=== PATIENT | female | born 1955 ===

== ENCOUNTER 2021-03-22 09:12 | Outpatient (REF) | payer BC, SELFPAY ==
--- NOTE | 2021-03-22 15:59 | MHC.AU.ANR ---
Adult Audiological Evaluation Date of Visit: 03/22/21 Reason for Appointment: Audiological evaluation due to concern for decreased hearing. Ms. Patel reports that for ~10 years she's had difficulty hearing and understanding in the presence of background noise. She now notes that even one-on-one conversations can be difficulty to follow and she's asking for repetition frequently. Does patient feel they have a hearing loss?: Yes If Yes, Which Ear?: Both Ears When Was Hearing Difficulty First Noticed?: ~10 years ago, gradually worsening over time Has hearing been tested previously?: Yes Previous Hearing Test Results: Previously tested at [facility]. Results not available to be reviewed. Hearing Handicap Inventory: HHIE SCORE: 20 Based on HHIE score, patient has: Mild to moderate perceived hearing handicap Medical History: Medical History: High Blood Pressure Medication List: Amlodipine 10 mg, Omeprazole 20 mg, Vitamin B12 1000 mg Otoscopy: Right Ear: Unremarkable Left Ear: Unremarkable Tympanometry: Tympanometry performed due to: To assess integrity of the middle ear system Right Ear: Normal Middle Ear System (Type A) Left Ear: Normal Middle Ear System (Type A) Hearing Evaluation: Transducer(s) Used: Insert Earphones, Bone Conduction Method: Conventional Audiometry Stimuli Used: Pure Tones Right Ear: Description of Hearing: Normal hearing from 250-500 Hz, sloping to a mild to moderately severe sensorineural hearing loss from 5475-9421 Hz. Left Ear: Description of Hearing: Normal hearing from 250-500 Hz, sloping to a mild to moderately sensorineural hearing loss from 8808-8974 Hz. Speech Recognition Threshold (SRT): Method Used: Monitored Live Voice Stimuli Used: Spondee Words Right Ear: 25 dBHL Left Ear: 20 dBHL Word Discrimination: Method: Recorded Lists Word Lists Used: NU-6 Right Ear: 96% at 65 dBHL Left Ear: 96% at 65 dBHL QuickSIN: 1 dB SNR loss when presented binaurally at 65 dBHL, indicating normal speech in noise understanding abilities. Recommendations: Audiological re-evaluation in one year. Trial with amplification is recommended. Patient plans to contact [facility]. Advised to schedule a hearing aid consultation if she would like to pursue hearing aids through our clinic. Diagnosis: Primary Diagnosis: H90.3 Bilateral Sensorineural Hearing Loss Services Performed: Services Performed: Comprehensive Audiological Evaluation (CPT 23848) Tympanometry (CPT 16966) Unlisted Otorhinolaryngological Service or Procedure (CPT 67674) Signature: Provider: Nida Perez, CCC-A
== END 2021-03-22 09:13 | disposition home or self-care (01) ==
LOC: HO.SH 09:12
PROVIDERS: Visit Provider Internal Medicine
DX: H90.3 Sensorineural hearing loss, bilateral (principal)
CPT/HCPCS: 92557; 92567

== ENCOUNTER 2021-12-14 13:20 | Outpatient (REF) | payer SELFPAY ==
--- NOTE | 2021-12-14 15:37 | MHC.AU.HAS ---
Hearing Aid Evaluation Date of Visit: 12/14/21 Historical Information: Description of Hearing: Normal low-frequency hearing sloping to a mild to moderate/moderately-severe sensorineural hearing loss bilaterally. Current personal amplification information, if applicable: None Summary: Ms. Patel was seen today for an HAE. She was seen for an audiological evaluation last year and at that time applied for [facility] services but was not approved. She would like to proceed with purchasing a pair of hearing aids. Discussed hearing aid styles and technologies. She would like to try EDWIN style hearing aids coupled with domes and with standard batteries. Hearing Aid Prescription: Based on the individual?s shared listening needs, communication environments, dexterity, desire for connectivity, and personal preferences, the following prescription for amplification has been made: Right ear: Range Examiner: PhonO-film Model: Audeo P70-13T Battery Size: 13 Color: H0 Beige Hand Chain Maker: Size 1 M Type of Dome: Open dome Left ear: Left ear prescription to be same as Right Hearing Aid above: Range Examiner: Phonak Model: Audeo P70-13T Battery Size: 13 Color: H0- Beige Hand Chain Maker: 1 M Type of Dome: Open Plan of Care: Hearing Instrument Fitting to be scheduled when materials arrive. Hearing aids ordered. Paid $350 down payment. Plans to put half down at fitting and set up a payment plan for the remainder. Primary Diagnosis: H90.3 Bilateral Sensorineural Hearing Loss Signature: Provider: Nida Perez, CCC-A
== END 2021-12-14 13:21 | disposition home or self-care (01) ==
LOC: HO.HAP 13:20
PROVIDERS: Visit Provider Internal Medicine
DX: Z46.1 Encounter for fitting and adjustment of hearing aid (principal); H90.3 Sensorineural hearing loss, bilateral
CPT/HCPCS: 92591

== ENCOUNTER 2022-01-27 14:15 | Outpatient (REF) | payer BC, SELFPAY | END 2022-01-27 14:16 | disposition home or self-care (01) | LOC: HO.HAP 14:15 | PROVIDERS: Visit Provider Internal Medicine | DX: Z46.1 Encounter for fitting and adjustment of hearing aid (principal); Z90.3 Acquired absence of stomach [part of] | CPT/HCPCS: V5261 ==

== ENCOUNTER 2022-02-17 14:29 | Outpatient (REF) | payer SELFPAY | END 2022-02-17 14:30 | disposition home or self-care (01) | LOC: HO.HAP 14:29 | PROVIDERS: Visit Provider Internal Medicine | DX: Z13.89 Encounter for screening for other disorder (principal) ==

== ENCOUNTER 2022-08-01 11:34 | Outpatient (REF) | payer SELFPAY ==
--- NOTE | 2022-08-01 12:29 | MHC.AU.HFU ---
Hearing Instrument Follow-Up- Binaural Date of Visit: 08/01/22 Right Ear: Marilyak Freddieeo P70-13T SN: [id number] Color: Beige Repair Warranty: 03/28/2025 Loss and Damage Warranty: 03/28/2025 Battery Size: 13 Pinmaker: Size 0 M Type of Mold: Small open dome Type of Wax Guard: Cerushield Dispensed By: [facility] Date of Fittin01/27/2022 Left Ear: Marilyak Freddieeo P70-13T SN: [id number] Color: Beige Repair Warranty: 03/28/2025 Loss and Damage Warranty: 03/28/2025 Battery Size: 13 Pinmaker: 0 M Type of Mold: Small open dome Type of Wax Guard: Cerushield Dispensed By: [facility] Date of Fittin01/27/2022 Follow-Up Summary: Tennille returned for routine hearing aid maintenance. She reported that overall she is doing well with the hearing aids; however, she typically only wears them when she goes out. Discussed the importance of daily consistent use, even in quiet environments. Cleaned the hearing aids, vacuumed the microphones, and replaced the domes, wax guards, and retention tails. A listening check demonstrated that the hearing aids are in good working order. Recommendations: Hearing instrument maintenance in 6 months, or sooner if needed. Please contact our clinic with any questions or concerns. Recommendations (Other): Updated audiological evaluation - Tennille will request a doctor's order for the hearing test from her primary care physician. Diagnosis Code(s): Primary Diagnosis: H90.3 Bilateral Sensorineural Hearing Loss Signature: Provider: Satnam Lopez, [facility]A
== END 2022-08-01 11:35 | disposition home or self-care (01) ==
LOC: HO.HAP 11:34
DX: Z13.89 Encounter for screening for other disorder (principal)